=== PATIENT | male | born 1935 | race Caucasian/White ===

== ENCOUNTER 2016-10-09 12:08 | Outpatient (CLI) | payer MEDICARE | END 2016-10-09 12:09 | disposition short-term general hospital (02) | LOC: EMS 12:08 | PROVIDERS: ATTEND Surgery | DX: R06.02 Shortness of breath (principal); R07.89 Other chest pain | CPT/HCPCS: A0170; A0425; A0427 ==

== ENCOUNTER 2016-11-04 08:36 | Outpatient (CLI) | payer MEDICARE | END 2016-11-04 08:37 | disposition home or self-care (01) | LOC: LAB.F 08:36 | PROVIDERS: ATTEND Internal Medicine Cardiovascular Disease | DX: I48.1 Persistent atrial fibrillation (principal) | CPT/HCPCS: 85610 ==

== ENCOUNTER 2016-11-10 09:30 | Outpatient (CLI) | payer MEDICARE | END 2016-11-10 09:31 | disposition home or self-care (01) | LOC: LAB.F 09:30 | PROVIDERS: ATTEND Internal Medicine Cardiovascular Disease | DX: I48.1 Persistent atrial fibrillation (principal) | CPT/HCPCS: 36415; 85610 ==

== ENCOUNTER 2016-11-14 09:05 | Outpatient (CLI) | payer MEDICARE | END 2016-11-14 09:06 | disposition home or self-care (01) | LOC: LAB.F 09:05 | PROVIDERS: ATTEND Internal Medicine Cardiovascular Disease | DX: I48.1 Persistent atrial fibrillation (principal) | CPT/HCPCS: 85610 ==

== ENCOUNTER 2016-11-18 09:04 | Outpatient (CLI) | payer MEDICARE | END 2016-11-18 09:05 | disposition home or self-care (01) | LOC: LAB.F 09:04 | PROVIDERS: ATTEND Internal Medicine Cardiovascular Disease | DX: I48.1 Persistent atrial fibrillation (principal) | CPT/HCPCS: 85610 ==

== ENCOUNTER 2016-11-25 09:09 | Outpatient (CLI) | payer MEDICARE | END 2016-11-25 09:10 | disposition home or self-care (01) | LOC: LAB.F 09:09 | PROVIDERS: ATTEND Internal Medicine Cardiovascular Disease | DX: I48.1 Persistent atrial fibrillation (principal) | CPT/HCPCS: 85610 ==

== ENCOUNTER 2016-12-02 08:54 | Outpatient (CLI) | payer MEDICARE | END 2016-12-02 08:55 | disposition home or self-care (01) | LOC: LAB.F 08:54 | PROVIDERS: ATTEND Internal Medicine Cardiovascular Disease | DX: I48.1 Persistent atrial fibrillation (principal) | CPT/HCPCS: 85610 ==

== ENCOUNTER 2016-12-16 07:45 | Outpatient (CLI) | payer MEDICARE | END 2016-12-16 07:46 | disposition home or self-care (01) | LOC: LAB.F 07:45 | PROVIDERS: ATTEND Internal Medicine Cardiovascular Disease | DX: I48.1 Persistent atrial fibrillation (principal) | CPT/HCPCS: 85610 ==

== ENCOUNTER 2017-01-18 10:32 | Outpatient (CLI) | payer MEDICARE | END 2017-01-18 10:33 | disposition home or self-care (01) | LOC: LAB.F 10:32 | PROVIDERS: ATTEND Internal Medicine Cardiovascular Disease | DX: I48.1 Persistent atrial fibrillation (principal) | CPT/HCPCS: 85610 ==

== ENCOUNTER 2017-02-07 08:37 | Outpatient (CLI) | payer MEDICARE | END 2017-02-07 08:38 | disposition home or self-care (01) | LOC: LAB.F 08:37 | PROVIDERS: ATTEND Internal Medicine Cardiovascular Disease | DX: I48.1 Persistent atrial fibrillation (principal) | CPT/HCPCS: 85610 ==

== ENCOUNTER 2017-03-07 10:27 | Outpatient (CLI) | payer MEDICARE | END 2017-03-07 10:28 | disposition home or self-care (01) | LOC: LAB.F 10:27 | PROVIDERS: ATTEND Internal Medicine Cardiovascular Disease | DX: I48.1 Persistent atrial fibrillation (principal) | CPT/HCPCS: 85610 ==

== ENCOUNTER 2017-04-04 11:33 | Outpatient (CLI) | payer MEDICARE | END 2017-04-04 11:34 | disposition home or self-care (01) | LOC: LAB.F 11:33 | PROVIDERS: ATTEND Internal Medicine Cardiovascular Disease | DX: I48.1 Persistent atrial fibrillation (principal) | CPT/HCPCS: 85610 ==

== ENCOUNTER 2017-04-25 08:41 | Outpatient (CLI) | payer MEDICARE | END 2017-04-25 08:42 | disposition home or self-care (01) | LOC: LAB.F 08:41 | PROVIDERS: ATTEND Internal Medicine | DX: I48.1 Persistent atrial fibrillation (principal) | CPT/HCPCS: 85610 ==

== ENCOUNTER 2017-05-23 08:05 | Outpatient (CLI) | payer MEDICARE | END 2017-05-23 08:06 | disposition home or self-care (01) | LOC: LAB.F 08:05 | PROVIDERS: ATTEND Internal Medicine Cardiovascular Disease | DX: I48.1 Persistent atrial fibrillation (principal) | CPT/HCPCS: 85610 ==

== ENCOUNTER 2017-06-13 07:47 | Outpatient (CLI) | payer MEDICARE | END 2017-06-13 07:48 | disposition home or self-care (01) | LOC: LAB.F 07:47 | PROVIDERS: ATTEND Internal Medicine Cardiovascular Disease | DX: I48.1 Persistent atrial fibrillation (principal) | CPT/HCPCS: 85610 ==

== ENCOUNTER 2017-07-11 08:14 | Outpatient (CLI) | payer MEDICARE | END 2017-07-11 08:15 | disposition home or self-care (01) | LOC: LAB.F 08:14 | PROVIDERS: ATTEND Nurse Practitioner Family | DX: I48.1 Persistent atrial fibrillation (principal) | CPT/HCPCS: 85610 ==

== ENCOUNTER 2017-08-08 08:09 | Outpatient (CLI) | payer MEDICARE | END 2017-08-08 08:10 | disposition home or self-care (01) | LOC: LAB.F 08:09 | PROVIDERS: ATTEND Nurse Practitioner Family | DX: I48.1 Persistent atrial fibrillation (principal) | CPT/HCPCS: 85610 ==

== ENCOUNTER 2018-12-14 14:13 | Outpatient (CLI) | payer MEDICARE | END 2018-12-14 14:14 | disposition home or self-care (01) | LOC: LAB.S 14:13 | PROVIDERS: ATTEND Internal Medicine Cardiovascular Disease | DX: I48.2 Chronic atrial fibrillation (principal); Z79.01 Long term (current) use of anticoagulants | CPT/HCPCS: 85610 ==

== ENCOUNTER 2018-12-19 13:47 | Outpatient (CLI) | payer MEDICARE | END 2018-12-19 13:48 | disposition home or self-care (01) | LOC: LAB.S 13:47 | PROVIDERS: ATTEND Pharmacist Pharmacist Clinician (PhC)/ Clinical Pharmacy Specialist | DX: I48.2 Chronic atrial fibrillation (principal) | CPT/HCPCS: 36415; 85610 ==

== ENCOUNTER 2019-01-03 02:23 | Outpatient (CLI) | payer MEDICARE | END 2019-01-03 02:24 | disposition EMS.NT | LOC: EMS 02:23 | PROVIDERS: ATTEND Surgery | DX: S01.81XA Laceration without foreign body of other part of head, initial encounter (principal); W01.0XXA Fall on same level from slipping, tripping and stumbling without subsequent striking against object, initial encounter; Y92.009 Unspecified place in unspecified non-institutional (private) residence as the place of occurrence of the external cause ==

== ENCOUNTER 2019-01-03 02:59 | Emergency (ER) | payer MEDICARE ==
--- NOTE | 2019-01-03 04:18 | ED Physician Documentation ---
PD HPI HEAD INJURY - Stated complaint Stated Complaint: GLF HEAD LAC - Chief complaint Chief Complaint: Laceration - History obtained from History obtained from: Patient, Family - History of Present Illness Mechanism of head injury: Fell Where head injury occurred: Home Timing - onset: Today Location of injury: Left (Forehead) Associated symptoms: LOC (Reported loss of consciousness of 1 to 2 minutes per his and he lives with but he tells me that she does not know.). No: Nausea / vomiting, Neck pain Recently seen: Not recently seen - Additional information Additional information: This is an 83-year-old man with pulmonary fibrosis who just went on hospice care at the end of November and has also elected to come off of warfarin for his chronic A. fib. He got up to go to the bathroom tonight and tripped and fell hitting his head on the floor suffering a laceration. He lives at home with his and she reported a loss of consciousness of 1 to 2 minutes. He is here in the emergency department with his daughter and the hospice caregiver. He has little pain in his left hip but is not really ambulatory anyway and he has been able to stand on it and bear weight. Minimal pain in the left wrist. Otherwise denies injury. He just wants the wound sutured so he can return home. Review of Systems Skin: reports: Laceration (s) Neurologic: reports: Head injury, LOC (Possible). denies: Generalized weakness, Headache PD PAST MEDICAL HISTORY - Allergies Allergies/Adverse Reactions: Allergies Allergy/AdvReac Type Severity Reaction Status Date / Time BP MEDS AdvReac Dizziness Uncoded 01/03/19 04:34 PD ED PE NORMAL - Vitals Vital signs reviewed: Yes - General General: Alert and oriented X 3, No acute distress, Well developed/nourished, Other (Seated in a wheelchair with oxygen flowing) - HEENT HEENT: Other (There is a 3 cm laceration over the left eyebrow but is gaping open. Actually fairly superficial and not down to the bone.) - Cardiac Cardiac: No murmur, Other (Irregular rate and rhythm) - Respiratory Respiratory: No respiratory distress - Extremities Extremities: Other (Patient did not want an exam other than looking at the laceration to repair it.) - Neuro Neuro: Alert and oriented X 3, Other (There are no gross neurological deficits.) Results - Vitals Vitals: Vital Signs - 24 hr 10/10/19 10/10/19 03:07 05:18 Temperature 36.6 C 36.8 C Heart Rate 50 L 59 L Respiratory 20 16 Rate Blood Pressure 123/101 H 141/73 H O2 Saturation 94 100 Oxygen O2 Source Nasal cannula Procedures - Laceration (location) Face left Length in cm: 3 Wound type: Linear Neurovascular status: Sensory intact, Motor intact, Vascular intact Anesthesia: Lidocaine 2% with epi Wound Preparation: Hibiclens, Irrigated copiously NS, Wound explored, To the base. No: Debrided moderately, FB identified Skin layer closure: Nylon, Running Other: Patient tolerated well, No complications Complexity: Simple PD MEDICAL DECISION MAKING - ED course Complexity details: d/w patient, d/w family ED course: Patient tolerated the procedure well. Wound was cleansed and dressed with antibiotic ointment and his daughter is instructed on wound care. He declined tetanus update stating that it did not matter. They just wanted the wound closed. Suture removal in 5 days. Departure - Departure Disposition: 01 Home, Self Care Clinical Impression: Laceration Instructions: ED Laceration All Follow-Up: Lexii Simpson MD [Primary Care Provider] - Comments: May wash the wound starting tomorrow with mild soap and water. Pat it dry. A thin layer of antibiotic ointment if desired. Suture removal in 5 days. Discharge Date/Time: 01/03/19 05:22
[2019-01-03] MEDS ORDERED: LIDOCAINE 2%-EPI 1:100000 20 ML MDV SUBQ STA (04:27)
[2019-01-03 05:19] VITALS: BP 141/73
== END 2019-01-03 05:22 | disposition home or self-care (01) ==
LOC: ED 02:59
DX: S01.81XA Laceration without foreign body of other part of head, initial encounter (principal); W01.198A Fall on same level from slipping, tripping and stumbling with subsequent striking against other object, initial encounter; Y93.01 Activity, walking, marching and hiking; Y92.009 Unspecified place in unspecified non-institutional (private) residence as the place of occurrence of the external cause; M25.552 Pain in left hip; J84.10 Pulmonary fibrosis, unspecified; I48.20 Chronic atrial fibrillation, unspecified
CPT/HCPCS: 12013; 99282